=== PATIENT | male | born 1960 | race Caucasian/White ===

== ENCOUNTER 2017-06-20 19:20 | Emergency (ER) | payer BC ==
--- NOTE | 2017-06-20 19:32 | PDOC ---
Rapid Medical Evaluation Time Seen by Provider: 06/20/17 19:30 Medical Evaluation: Allergies Allergy/AdvReac Type Severity Reaction Status Date / Time dicyclomine HCl [From Bentyl] Allergy Severe ANAPHYLAXIS Verified 05/06/16 09:26 . pistachio nut Allergy Swelling Verified 05/06/16 09:26 06/20/17 19:30 Pt c/o: left leg swelling and calf pain, Hx of PE, recent decrease in xarelto. Pt on brief exam: noted edema and erythema to left foot and calf Pt ordered for : duplex of lle Pt to proceed to the ED Discharge Disposition - Diagnosis Pain of left calf - Referrals - Patient Instructions - Post Discharge Activity
[2017-06-20 19:37] VITALS: BMI 34.9
--- NOTE | 2017-06-20 21:04 | PDOC ---
History of Present Illness - General Chief Complaint: Pain Stated Complaint: PCP SENT/BLOOD CLOT Time Seen by Provider: 06/20/17 19:30 History Source: Patient Exam Limitations: No Limitations - History of Present Illness Initial Comments: 06/20/17 20:56 56 M with PMH HTN, HLD, PE, DVT (July 2015 from R calf; currently on Xarelto 10mg - changed from 20mg), BPH, past C.difficile infection, thrush, who presents to the ED c/o L ankle pain over the past seven hours. As per pt, at 1pm , he was walking in [place] with his work partner when he noticed that his L ankle was tender and edematous. At the time, he noted mild pruritis, without erythema. Pt states that he did not endure any injury to his lower extremity, however wore newer sneakers today and exerted himself more than usual. Pain is a "burning sensation" wrapped around his ankle and it is exacerbated with weight bearing. Pt has not had any prolonged immobilizations recently (aside from 1 hr car rides , or 2-3 hrs spent at his work desk). He has not had any recent surgeries. Recently his xarelto dose was changed from 20mg qd to 10mg qd. Denies CUETO, fever , chills, SOB, or changes in urinary or bowel function. PMH: as above, herniated discs (cervical and lumbar) PsxH: R hemopneumothorax (30 yrs ago), R rotator cuff repair (10 yrs ago), R meniscus repair (7 months ago), L trigger finger (8-10 yrs ago) meds: Xarelto 10mg qd, amlodipine/benzapril 10/20mg, rapaflo 8mg, cialis 5mg qd , montelukast 10mg, atorvastatin 20mg qd, vascepa, nexium 40mg qd, aspirin 81mg qd, xarelto 10mg qd allergies: bentyl, pistachios- throat closes FH: both parents - passed from strokes SH: quit smoking 30 yrs ago had smoked 1 ppd for 8 yrs prior. stopped drinking 34 yrs ago, drank "frequently" prior. denies recreational drug use Past History - Past Medical History Allergies/Adverse Reactions: Allergies Allergy/AdvReac Type Severity Reaction Status Date / Time dicyclomine HCl [From Bentyl] Allergy Severe ANAPHYLAXIS Verified 06/20/17 21:29 . pistachio nut Allergy Swelling Verified 06/20/17 21:29 Home Medications: Ambulatory Orders Amlodipine Besylate/Benazepril [Lotrel 10-20 mg Capsule] 1 cap PO DAILY Aspirin Coated [Ecotrin -] 81 mg PO DAILY 06/20/17 Atorvastatin Ca [Lipitor] 10 mg PO HS 06/20/17 Esomeprazole Magnesium [Nexium 24Hr] 20 mg PO DAILY 06/20/17 Montelukast Na [Singulair -] 10 mg PO HS 06/20/17 Rivaroxaban [Xarelto -] 10 mg PO DAILY 06/20/17 Tadalafil [Cialis] 5 mg PO DAILY 06/20/17 Anemia: No Asthma: Yes Cancer: No Cardiac Disorders: No CVA: No COPD: Yes CHF: No DVT: Yes Dementia: No Diabetes: No GI Disorders: Yes (GERD, C DIFF) Disorders: Yes (prostate enlarged) HTN: Yes Hypercholesterolemia: Yes Liver Disease: No Seizures: No Thyroid Disease: No Lung CA: No (PE) - Surgical History Abdominal Surgery: Yes (HERNIA) Appendectomy: No Cardiac Surgery: No Cholecystectomy: No Lung Surgery: Yes (RT HEMOTHORAX.) Neurologic Surgery: No Orthopedic Surgery: Yes (SHOULDER-ROTATOR CUFF) - Immunization History Immunization Up to Date: Yes - Suicide/Smoking/Psychosocial Hx Smoking History: Never smoked Have you smoked in the past 12 months: No If you are a former smoker, when did you quit?: 30 YRS Information on smoking cessation initiated: No Hx Alcohol Use: No Drug/Substance Use Hx: No Substance Use Type: None Hx Substance Use Treatment: No Review of Systems - Review of Systems Able to Perform ROS?: Yes Musculoskeletal: Yes: Joint Pain, Joint Swelling All Other Systems: Reviewed and Negative *Physical Exam - Vital Signs Last Vital Signs Temp Pulse Resp BP Pulse Ox 98.0 F 77 18 150/97 96 06/20/17 19:34 06/20/17 19:34 06/20/17 19:34 06/20/17 19:34 06/20/17 19:34 - Physical Exam General Appearance: Yes: Nourished, Obese HEENT: positive: EOMI, AVNI Neck: positive: Supple Respiratory/Chest: positive: Lungs Clear, Normal Breath Sounds Cardiovascular: positive: Regular Rhythm, Regular Rate, S1, S2 Vascular Pulses: Dorsalis-Pedis (R): 2+, Doralis-Pedis (L): 2+ Gastrointestinal/Abdominal: positive: Normal Bowel Sounds, Soft Extremity: positive: Pedal Edema, Swelling (+TTP lateral to L malleolus, with edema, difficulty with ROM- ankle flexion and extension), 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 Pt (-) for DVT, ( +) mass L ankle. Will obtain further imaging XR of ankle 06/21/17 00:33 Will send pt with f/u with surgery, ortho motrin *DC/Admit/Observation/Transfer Diagnosis at time of Disposition: Pain of left calf - Discharge Dispostion Disposition: HOME Condition at time of disposition: Stable Admit: No - Referrals Referrals: Evin Day MD [Staff Physician] - - Patient Instructions Additional Instructions: You were recently in the hospital because you injured your right ankle. While you were here, you had an ultrasound done which showed that you did not have a blood clot. However, it showed that you had a mass on the side of your ankle. It is possible that this is a fluid-filled bursa, however you should follow up with your primary care doctor and an orthopedic mechanic this week for follow up. We recommend the following an Orthopedic doctor, Dr. Day. His office number is [phone]. You can call tomorrow to schedule an appointment. You may take Tylenol for your pain and we recommend wrapping the area with an VIRGEN bandage. If your pain becomes severe, please return to the hospital. We hope you feel better soon. - Post Discharge Activity
[2017-06-21] MEDS ORDERED: IBUPROFEN 600 MG TABLET (FP) PO ONE ×2 (00:33→00:37)
--- NOTE | 2017-06-21 00:52 | PDOC ---
Attending Attestation - Resident Resident Name: Arminda Pandya - ED Attending Attestation I have performed the following: I have examined & evaluated the patient, The case was reviewed & discussed with the resident, I agree w/resident's findings & plan - HPI HPI: 06/21/17 00:48 Pt comes with left lateral ankle pain and foot pain after walking a long distance today in a new pair of sneakers. Pt has right knee pain and as a result he was placing more pressure on the left side. Pt has no other complaints. He had no falls and no inversion or eversion of the foot. PMD Dipin ([place] help) sent pt to the ER to r/o DVT. - Physicial Exam PE: 06/21/17 00:50 Agree with resident exam - Medical Decision Making 06/21/17 00:50 Follow with ortho. Tylenol for pain. Only one dose of NSAID given, Pt is on xarelto and we will not prescribe him with any to go. Pt will get jacobo wrap and RICE precautions. Pt will be sent home with PMD follow up. CYSTIC bursa swelling at the lateral distal fibula.
[2017-06-21 01:00] VITALS: BP 144/92; PULSE 78; TEMP 98
== END 2017-06-21 00:59 | disposition home or self-care (01) ==
LOC: JER 19:20
DX: M79.662 Pain in left lower leg (principal); N40.0 Benign prostatic hyperplasia without lower urinary tract symptoms; J45.909 Unspecified asthma, uncomplicated; K21.9 Gastro-esophageal reflux disease without esophagitis; I10 Essential (primary) hypertension; E78.00 Pure hypercholesterolemia, unspecified
CPT/HCPCS: 73610-TC-LT-FY; 73630-TC-LT; 93971-TC; 99281-25